=== PATIENT | female | born 1940 | race African-American/Black ===

== ENCOUNTER 2017-03-08 09:51 | Emergency (ER) | payer OTHER ==
[~2017-03-08] VITALS: Ht 160 cm; Wt 60.0 kg
[2017-03-08] MEDS ORDERED: HYDROCODONE/ACETAMINOPHEN 5/325MG TABLET PO ONE (10:30)
[2017-03-08] MEDS ORDERED: IBUPROFEN 600MG TABLET PO ONE (10:30)
[2017-03-08 11:44] VITALS: BP 139/64
== END 2017-03-08 12:09 | disposition home or self-care (01) ==
LOC: ER 10:07
DX: S20.219A Contusion of unspecified front wall of thorax, initial encounter (principal); I10 Essential (primary) hypertension; E78.00 Pure hypercholesterolemia, unspecified; V89.2XXA Person injured in unspecified motor-vehicle accident, traffic, initial encounter; Y93.89 Activity, other specified; Y92.89 Other specified places as the place of occurrence of the external cause; Y99.8 Other external cause status
CPT/HCPCS: 71010; 71250; 99284